=== PATIENT | male | born 1945 | race Caucasian/White ===

== ENCOUNTER → 2019-02-12 | Outpatient (CLI) | payer MEDICARE | END | disposition home or self-care (01) | LOC: RAH 15:47 | PROVIDERS: ATTEND Internal Medicine | DX: M79.641 Pain in right hand (principal) | CPT/HCPCS: 73120 ==

== ENCOUNTER 2022-08-15 17:35 | Observation (INO) | payer OTHER, MEDICARE ==
[~2022-08-15] VITALS: Ht 177.8 cm; Wt 95.1 kg
[2022-08-15] MEDS ORDERED: BACITRACIN 28.4 GM OINT TP ONE (18:00)
[2022-08-15] MEDS ORDERED: LIDOCAINE/PRILOCAINE CREAM 5GM TUBE TP SCH (18:00)
[2022-08-15] MEDS ORDERED: HYDROCODONE/ACETAMINOPHEN 5/325 MG TAB PO ONE ×2 (18:00→21:00)
[2022-08-15 18:18] LABS: BASOPHILS % (AUTO) 0.4 % (0.0-5.0); EOSINOPHILS % (AUTO) 1.6 % (0.0-8.0); HEMATOCRIT 48.6 % (42-54); LYMPHOCYTES % (AUTO) 11.1 % (21.0-51.0); MEAN CORPUSCULAR HEMOGLOBIN 27.2 pg (27.0-33.0); MEAN CORPUSCULAR HGB CONC 32.7 g/dL (32.0-36.0); MEAN CORPUSCULAR VOLUME 83.1 fL (79-99); MONOCYTES % (AUTO) 6.7 % (3.0-13.0); NEUTROPHILS % (AUTO) 79.8 % (40.0-77.0); PLATELET COUNT (AUTO) 183 K/uL (130-400); RED BLOOD CELL COUNT(AUTO) 5.85 MIL/uL (4.50-6.20); RED CELL DISTRIBUTION WIDTH 14.4 % (11.0-15.5); WHITE BLOOD COUNT (AUTO) 7.6 K/uL (4.8-10.8)
[2022-08-15 18:38] LABS: CREATININE 1.7 mg/dL (0.5-1.5); POTASSIUM 3.2 mmol/L (3.5-5.1)
[2022-08-15 18:42] LABS: ALBUMIN 2.4 g/dL (3.5-5.0)
[2022-08-15 19:00] LABS: APPEARANCE,URINE CLEAR (CLEAR); BILIRUBIN,URINE NEGATIVE (NEGATIVE); COLOR,URINE LIGHT-YELLOW (YELLOW); GLUCOSE, URINE (UA) 200 mg/dL (NEGATIVE); KETONES,URINE NEGATIVE (NEGATIVE); LEUKOCYTE ESTERASE ,URINE NEGATIVE Leu/uL (NEGATIVE); NITRATE,URINE NEGATIVE (NEGATIVE); PH,URINE 7.5 (5.0-8.0); PROTEIN,URINE 600 mg/dL (NEGATIVE); UROBILINOGEN,URINE 0.2 mg/dL (0.2-1.0)
[2022-08-15 19:05] LABS: MUCUS,URINE RARE LPF (None Seen); YEAST,URINE BUDDING RARE /HPF (None Seen)
[2022-08-15] MEDS: ONDANSETRON 4MG INJ IVP PRN (23:21)
[2022-08-15] MEDS: MORPHINE 4 MG SYG IVP PRN (23:22)
[2022-08-16] MEDS ORDERED: HYDRALAZINE 20MG/ML VIAL ONE (01:25)
[2022-08-16] MEDS ORDERED: CARBIDOPA-LEVODOPA 25-100 TAB PO STA (02:12)
[2022-08-16] MEDS ORDERED: HYDROXYZINE 25 MG TABLET ONE (02:20)
[2022-08-16] MEDS ORDERED: MIRTAZAPINE 15 MG TABLET ONE (02:20)
[2022-08-16] MEDS ORDERED: CARB-336 PO (03:19)
[2022-08-16] MEDS ORDERED: TRAZ-187 PO (03:19)
[2022-08-16] MEDS ORDERED: MIRT-22 PO (03:19)
[2022-08-16 04:15] VITALS: BP 149/54
[2022-08-16] MEDS: MORPHINE 4 MG SYG IVP PRN ×2 (06:36→12:36)
[2022-08-16 06:55] LABS: BASOPHILS % (AUTO) 0.5 % (0.0-5.0); EOSINOPHILS % (AUTO) 0.9 % (0.0-8.0); HEMATOCRIT 51.2 % (42-54); LYMPHOCYTES % (AUTO) 10.5 % (21.0-51.0); MEAN CORPUSCULAR HEMOGLOBIN 27.1 pg (27.0-33.0); MEAN CORPUSCULAR HGB CONC 32.2 g/dL (32.0-36.0); MEAN CORPUSCULAR VOLUME 84.2 fL (79-99); MONOCYTES % (AUTO) 7.4 % (3.0-13.0); NEUTROPHILS % (AUTO) 80.4 % (40.0-77.0); PLATELET COUNT (AUTO) 223 K/uL (130-400); RED BLOOD CELL COUNT(AUTO) 6.08 MIL/uL (4.50-6.20); RED CELL DISTRIBUTION WIDTH 14.6 % (11.0-15.5); WHITE BLOOD COUNT (AUTO) 10.7 K/uL (4.8-10.8)
[2022-08-16 07:10] LABS: ALBUMIN 2.5 g/dL (3.5-5.0); CREATININE 1.7 mg/dL (0.5-1.5); POTASSIUM 3.5 mmol/L (3.5-5.1); TOTAL PROTEIN, SERUM 6.1 g/dL (6.0-8.3)
[2022-08-16 08:00] VITALS: BP 154/86
[2022-08-16] MEDS ORDERED: LOSARTAN/HYDROCHLOROTHIAZIDE 50-12.5MG TABLET PO SCH (09:00)
[2022-08-16] MEDS ORDERED: BUSP15TA3 PO (12:27)
[2022-08-16] MEDS ORDERED: LOSA1TAB54 PO (12:31)
[2022-08-16] MEDS: ONDANSETRON 4MG INJ IVP PRN (12:37)
[2022-08-16] MEDS ORDERED: BUSPIRONE HCL 5 MG TABLET PO SCH (14:00)
[2022-08-16] MEDS ORDERED: CARBIDOPA-LEVODOPA 25-100 TAB PO SCH (14:00)
[2022-08-16] MEDS ORDERED: MIRTAZAPINE 15 MG TABLET PO SCH (21:00)
[2022-08-16] MEDS ORDERED: TRAZODONE HCL 100 MG TABLET PO SCH (21:00)
[2022-08-17] MEDS ORDERED: INSU300I3 SQ (20:32)
[2022-08-17] MEDS ORDERED: MIRT-93 PO (20:38)
[2022-08-17] MEDS ORDERED: CLON0.2T PO (20:38)
[2022-08-17] MEDS ORDERED: TRAZ-187 PO (20:38)
[2022-08-22] MEDS ORDERED: DAPA5TAB PO (18:45)
[2022-08-22] MEDS ORDERED: METF500S9 PO (18:45)
[2022-08-22] MEDS ORDERED: ACET1TAB97 PO (18:45)
[2022-08-22] MEDS ORDERED: CEPH500T PO (18:45)
== END 2022-08-16 15:10 | disposition home or self-care (01) ==
LOC: EDH 17:35 → EDHIP 21:40 → INTOOBSV 21:40 → 3AH 08-16 04:21
PROVIDERS: ADMIT Internal Medicine; ATTEND Internal Medicine
DX: S61.217A Laceration without foreign body of left little finger without damage to nail, initial encounter (principal); S00.83XA Contusion of other part of head, initial encounter; S20.219A Contusion of unspecified front wall of thorax, initial encounter; S80.02XA Contusion of left knee, initial encounter; S80.212A Abrasion, left knee, initial encounter; S50.312A Abrasion of left elbow, initial encounter; M79.18 Myalgia, other site; I10 Essential (primary) hypertension; J44.9 Chronic obstructive pulmonary disease, unspecified; E78.00 Pure hypercholesterolemia, unspecified; E11.9 Type 2 diabetes mellitus without complications; G20 Parkinson's disease; F17.200 Nicotine dependence, unspecified, uncomplicated; Z90.49 Acquired absence of other specified parts of digestive tract; Z79.899 Other long term (current) drug therapy; W01.10XA Fall on same level from slipping, tripping and stumbling with subsequent striking against unspecified object, initial encounter; Y93.89 Activity, other specified; Y92.480 Sidewalk as the place of occurrence of the external cause
CPT/HCPCS: 99285; 70450; 96374 ×2; 71045; 96375 ×2; 80053 ×2; 85025 ×2; 81001; 36415 ×2; 73080; 73130; 73562; 72125; 93005; 96376; 82948 ×4; J2405 ×2; J2270 ×3; G0378; J0360

== ENCOUNTER 2022-11-13 14:43 | Emergency (ER) | payer OTHER, MEDICARE ==
[~2022-11-13] VITALS: Ht 177.8 cm; Wt 80.7 kg
[~2022-11-13 14:43] MED LIST: ACET1TAB97 PO; BUSP15TA3 PO; CARB-336 PO; CEPH500T PO; CLON0.2T PO; DAPA5TAB PO; INSU300I3 SQ; LOSA1TAB54 PO; METF500S9 PO; MIRT-93 PO; TRAZ-187 PO
[2022-11-13 15:14] LABS: ABG OXYGEN SATURATION 50.4 % (95.0-99.0); BASE EXCESS,VENOUS BLOOD GAS -1.2 (-2.0-3.0); HCO3,VENOUS BLOOD GAS 23.1 (21.0-28.0); PCO2,VENOUS BLOOD GAS 38 (35-48); PH,VENOUS BLOOD GAS 7.406 (7.350-7.450)
[2022-11-13 15:23] LABS: APPEARANCE,URINE CLEAR (CLEAR); BILIRUBIN,URINE NEGATIVE (NEGATIVE); COLOR,URINE LIGHT-YELLOW (YELLOW); GLUCOSE, URINE (UA) >=1000 mg/dL (NEGATIVE); KETONES,URINE NEGATIVE (NEGATIVE); LEUKOCYTE ESTERASE ,URINE NEGATIVE Leu/uL (NEGATIVE); NITRATE,URINE NEGATIVE (NEGATIVE); OCCULT BLOOD,URINE NEGATIVE (NEGATIVE); PH,URINE 6.5 (5.0-8.0); PROTEIN,URINE 300 mg/dL (NEGATIVE); UROBILINOGEN,URINE 0.2 mg/dL (0.2-1.0)
[2022-11-13 15:27] LABS: BASOPHILS % (AUTO) 0.5 % (0.0-5.0); EOSINOPHILS % (AUTO) 1.5 % (0.0-8.0); HEMATOCRIT 47.8 % (42-54); LYMPHOCYTES % (AUTO) 10.5 % (21.0-51.0); MEAN CORPUSCULAR HEMOGLOBIN 27.2 pg (27.0-33.0); MEAN CORPUSCULAR HGB CONC 33.9 g/dL (32.0-36.0); MEAN CORPUSCULAR VOLUME 80.3 fL (79-99); MONOCYTES % (AUTO) 7.2 % (3.0-13.0); NEUTROPHILS % (AUTO) 79.8 % (40.0-77.0); PLATELET COUNT (AUTO) 235 K/uL (130-400); RED BLOOD CELL COUNT(AUTO) 5.95 MIL/uL (4.50-6.20); RED CELL DISTRIBUTION WIDTH 15.2 % (11.0-15.5); WHITE BLOOD COUNT (AUTO) 9.7 K/uL (4.8-10.8)
[2022-11-13 15:30] LABS: MUCUS,URINE RARE LPF (None Seen); RBC,URINE 0-1 /HPF (0-1); SQUAMOUS EPITHELIAL CELL,UR RARE /HPF (0-2)
[2022-11-13] MEDS ORDERED: 0.9%NACL 1000ML 1,000 ML IV ONE (15:30)
[2022-11-13] MEDS ORDERED: INSULIN HUMULIN R 100 UNIT/ML 3ML IV ONE (15:30)
[2022-11-13 15:49] LABS: ALBUMIN 3.1 g/dL (3.5-5.0); CREATININE 2.1 mg/dL (0.5-1.5); POTASSIUM 3.6 mmol/L (3.5-5.1); TOTAL PROTEIN, SERUM 6.8 g/dL (6.0-8.3)
[2022-11-13 16:44] VITALS: BP 149/72
== END 2022-11-13 16:45 | disposition home or self-care (01) ==
LOC: EDH 14:43
DX: E11.65 Type 2 diabetes mellitus with hyperglycemia (principal); E86.0 Dehydration; I10 Essential (primary) hypertension; E11.9 Type 2 diabetes mellitus without complications; F41.9 Anxiety disorder, unspecified; Z79.84 Long term (current) use of oral hypoglycemic drugs; Z79.899 Other long term (current) drug therapy
CPT/HCPCS: 99283; 96374; 96361; 80053; 82803; 85025; 82948 ×2; 82010; 81001; 36415; 36600; J1815; J7030